=== PATIENT | female | born 1955 | race Caucasian/White ===

== ENCOUNTER 2019-04-25 12:05 | Emergency (ER) | payer MEDICARE, OTHER, MEDICAID ==
[~2019-04-25] VITALS: Ht 165.1 cm; Wt 70.3 kg
[2019-04-25 12:25] VITALS: BP 135/73
[2019-04-25] MEDS ORDERED: CYMBALTA60 MG PO (12:32)
[2019-04-25] MEDS ORDERED: FLEXERIL PO (12:32)
[2019-04-25] MEDS ORDERED: NEURONTIN300 MG PO (12:32)
[2019-04-25] MEDS ORDERED: LISINOPRIL-HCT1 EACH PO (12:33)
[2019-04-25] MEDS ORDERED: LOVASTAT40 PO (12:33)
[2019-04-25] MEDS ORDERED: METFORMIN HCL500 M3 PO (12:33)
[2019-04-25] MEDS ORDERED: CLARITIN10 MG PO (12:33)
== END 2019-04-25 14:49 | disposition home or self-care (01) ==
LOC: M.ERS 12:05
DX: M25.552 Pain in left hip (principal); I10 Essential (primary) hypertension; E11.9 Type 2 diabetes mellitus without complications; Z85.89 Personal history of malignant neoplasm of other organs and systems; Z88.5 Allergy status to narcotic agent; Z88.0 Allergy status to penicillin; Z88.8 Allergy status to other drugs, medicaments and biological substances